=== PATIENT | female | born 1950 | race Two or more races ===

== ENCOUNTER → 2016-08-13 | Outpatient (POV) | LOC: OUTPT 00:01 | PROVIDERS: ATTEND Otolaryngology | DX: R42 Dizziness and giddiness (principal) | CPT/HCPCS: 92552 ==

== ENCOUNTER → 2017-03-31 | Outpatient (POV) | LOC: OUTPT 00:01 | PROVIDERS: ATTEND Otolaryngology | DX: H91.90 Unspecified hearing loss, unspecified ear (principal) | CPT/HCPCS: 92553 ==

== ENCOUNTER 2017-10-13 08:40 | Outpatient (POV) | END 2017-10-13 17:00 | LOC: OUTPT 08:40 | PROVIDERS: ATTEND Otolaryngology | DX: R42 Dizziness and giddiness (principal) | CPT/HCPCS: 92557; 92567 ==